=== PATIENT | male | born 1995 | race Caucasian/White ===

== ENCOUNTER 2019-11-11 18:39 | Emergency (ER) | payer OTHER, SELFPAY ==
[2019-11-11 18:49] VITALS: BP 130/81; PULSE 76; RESP 18; TEMP 36; O2SAT 99
[2019-11-11] MEDS: Lidocaine 1% Multi-Dose 50 ML VIAL (19:17)
[2019-11-11] MEDS: Lidocaine/Epinephri/Tetracaine Topical Gel 6 ML TP (19:19)
--- NOTE | 2019-11-11 20:04 | ED.GENADUL_ITS ---
Discharge Plan Disposition Patient Disposition: HOME Condition: Good Discharge Details Chief Complaint: Orthopedic Clinical Impression: Laceration of leg, right Primary Care Provider: Raudel Simpson ED Provider: Ghazala Smalls Discharge Instructions Instructions: Laceration (ED) Additional Instructions: Your tetanus has been updated Keep your dressing clean dry and intact. You can wash wound daily with warm soapy water pat dry gently apply bandage to protect Return to the emergency department in 7 to 10 days for suture removal. Return sooner for signs of infection including fever drainage increased pain. You can use acetaminophen and/or ibuprofen as instructed for pain Medical Decision Making <Ghazala Smalls NP - Last Filed: 11/11/19 20:14> This is a 23-year-old male who sustained a laceration while mountain biking. Isolated injury. He is ambulatory with no other muscle skeletal pain. Wound is irrigated with copious amounts of normal saline. Wound bed is examined no foreign debris noted. Let had been applied to wound then anesthetized with lidocaine 1% patient tolerated well. Wound closed using 9 4/0 Ethilon suture material. Wound is well approximated. Cleansed by nursing and dressing applied. His tetanus is updated. Wound care instructions have been given and he is to return in 7 to 10 days for suture removal he was advised to return sooner for signs of infection <Oumou Baxter DO - Last Filed: 11/11/19 20:16> I did not see or participate in the care of this patient but was available for consult if needed. HPI <Ghazala Smalls NP - Last Filed: 11/11/19 20:14> General Mode of arrival: ambulatory . Date/Time Provider Initiated Documentation: 11/11/19 19:09 . Limitations to Documentation: no limitations . Information obtained by: patient . HPI Narrative: Is a 23-year-old male with no significant past medical history who sustained a laceration below his right knee while mountain biking. He was able to bike out there was no other injuries other than the laceration he is ambulatory. There is no head injury C-spine tenderness or pain to his patella or right lower extremity he did not have any wound care prior to arrival nor did he take any pain medication General Stated Complaint: Orthopedic ROCAEL: 4 Review of Systems <Ghazala Smalls NP - Last Filed: 11/11/19 20:14> Constitutional Constitutional: Denies fever(s) Eyes Eyes: Denies blurry vision and Denies change in vision Cardiovascular Cardiovascular: Denies dyspnea Respiratory Respiratory: Denies dyspnea Musculoskeletal Musculoskeletal: Denies myalgias, Denies deformity, Denies arthralgias, Denies joint swelling, Denies numbness and Denies tingling Integumentary/Breasts Skin/Breast: Reports other (laceration) Neurologic Neurologic: Denies numbness and Denies tingling PFSH <Ghazala Smalls NP - Last Filed: 11/11/19 20:14> Medical History (Updated 11/11/19 @ 20:13 by Ghazala Smalls NP) No pertinent past medical history (Acute) Surgical History (Updated 11/11/19 @ 18:59 by Connie Maciel RN) History of tonsillectomy (Chronic) Right Ankle Surgery Social History Smoking/Tobacco Use Status: Never Drug use: Never Substance use type: does not use Do you feel safe at home: Yes Do you feel safe in your relationship?: Yes Exam <Ghazala Smalls NP - Last Filed: 11/11/19 20:14> Const General: cooperative, healthy appearing, comfortable and no acute distress Nutritional Appearance: average body habitus Orientation: alert HENHI Head: normal to inspection, normocephalic and atraumatic Resp Effort & Inspection: normal respiratory effort Cardio Rate: regular rate Rhythm: regular rhythm Skin Lesions: other (6 cm laceration, ) Rashes: no rashes Trauma: laceration (Approximately 3 inches below right knee, ) Extrem General: normal to inspection and full ROM Course <Ghazala Smalls NP - Last Filed: 11/11/19 20:14> Vital Signs Vital signs: Vital Signs Temperature 36.0 C L 11/11/19 18:49 Pulse 76 11/11/19 18:49 Respiratory Rate 18 11/11/19 18:49 Blood Pressure 130/81 11/11/19 18:49 Pulse Oximetry 99 11/11/19 18:49 Temperature 36.0 C L 11/11/19 18:49 Temperature Source Temporal Artery Scan 11/11/19 18:49 Pulse 76 11/11/19 18:49 Respiratory Rate 18 11/11/19 18:49 Respiratory Effort 11/11/19 18:55 Blood Pressure 130/81 11/11/19 18:49 Blood Pressure Position Supine 11/11/19 18:49 Pulse Oximetry 99 08/20/20 18:49 Oxygen Delivery Method Room Air 11/11/19 18:49 Oxygen Flow Rate 0 11/11/19 18:49
== END 2019-11-11 20:20 | disposition home or self-care (01) ==
PROVIDERS: Emergency Provider Nurse Practitioner Acute Care; PCP Physician Assistant
DX: S81.011A Laceration without foreign body, right knee, initial encounter (principal); V18.0XXA Pedal cycle driver injured in noncollision transport accident in nontraffic accident, initial encounter; W22.8XXA Striking against or struck by other objects, initial encounter; Y93.55 Activity, bike riding
CPT/HCPCS: 12002; 90471

== ENCOUNTER 2019-11-18 19:05 | Emergency (ER) | payer OTHER, SELFPAY ==
[2019-11-18 19:12] VITALS: BP 130/68; PULSE 80; RESP 16; TEMP 36.7; O2SAT 98
--- NOTE | 2019-11-18 19:24 | ED.GENADUL_ITS ---
Discharge Plan Disposition Patient Disposition: HOME Condition: Improving Discharge Details Chief Complaint: SutureRem Clinical Impression: Visit for suture removal Primary Care Provider: Raudel Simpson ED Provider: John Diana Discharge Instructions Additional Instructions: Leave Band-Aid in place for 2 days and then may remove. Steri-Strips will slowly start to peel may be removed over the next 3 to 5 days time. I recommend you gently advance activity with return to full activity in approximately 1 week's time. Return to the ER for any acute concerns. Medical Decision Making Healthy 23-year-old male presents for suture removal after being seen on November 10 for right knee laceration. The wound is well-appearing. Sutures removed, Steri-Strips placed and patient to be discharged home in stable condition. HPI General Mode of arrival: ambulatory . Date/Time Provider Initiated Documentation: 11/18/19 19:06 . Limitations to Documentation: no limitations . Information obtained by: patient . History of Present Illness 23 year old M presents to the emergency department with the chief complaint of Here for suture removal, no other complaints, General Stated Complaint: SutureRem ROCAEL: 5 PFSH Medical History (Updated 11/18/19 @ 19:23 by John Diana MD) No pertinent past medical history (Acute) Surgical History (Updated 11/11/19 @ 18:59 by Connie Maciel RN) History of tonsillectomy (Chronic) Right Ankle Surgery Social History Smoking/Tobacco Use Status: Never Drug use: Never Substance use type: does not use Do you feel safe at home: Yes Do you feel safe in your relationship?: Yes Exam Narrative Exam Narrative: Awake alert and oriented no acute distress No respiratory distress Right lower extremity with healing transverse laceration with sutures in place. No significant erythema or discharge Course Vital Signs Vital signs: Vital Signs Temperature 36.7 C 11/18/19 19:12 Pulse 80 11/18/19 19:12 Respiratory Rate 16 11/18/19 19:12 Blood Pressure 130/68 11/18/19 19:12 Pulse Oximetry 98 11/18/19 19:12 Temperature 36.7 C 11/18/19 19:12 Temperature Source Temporal Artery Scan 11/18/19 19:12 Pulse 80 11/18/19 19:12 Respiratory Rate 16 11/18/19 19:12 Respiratory Effort 11/18/19 19:14 Blood Pressure 130/68 11/18/19 19:12 Blood Pressure Position Sitting 11/18/19 19:12 Pulse Oximetry 98 11/18/19 19:12 Oxygen Delivery Method Room Air 11/18/19 19:12 Oxygen Flow Rate 0 11/18/19 19:12 Pain Level 2 11/18/19 19:12
== END 2019-11-18 19:30 | disposition home or self-care (01) ==
PROVIDERS: Emergency Provider Emergency Medicine; PCP Physician Assistant
DX: S81.011D Laceration without foreign body, right knee, subsequent encounter (principal); V18.0XXD Pedal cycle driver injured in noncollision transport accident in nontraffic accident, subsequent encounter; W22.8XXD Striking against or struck by other objects, subsequent encounter; Z48.02 Encounter for removal of sutures